=== PATIENT | male | born 1950 | race Caucasian/White ===

== ENCOUNTER → 2018-03-10 08:58 | Outpatient (CLI) | payer MEDICARE ==
[~2018-03-10] VITALS: Ht 177.8 cm; Wt 76.4 kg
--- NOTE | ~2018-03-10 | HEMODYNAMI ---
PATIENT:EMELY VALLE MEDICAL RECORD: [id number] : 50 LOCATION:DCASSIDY ADMISSION DATE: 03/10/18 Generatedon:03/10/201813:52 Patient name: EMELY VALLE Patient #: [id number] SSN: D OB: 1950 Date of study: 03/10/2018 Page: Of Hemodynamic Procedure Report Patient Data Patient Demographics Procedure consent was obtained First Name: EMELY Gender: Male Last Name: TORI : 1950 [facility] Initial: KERMIT Age: 67 year(s) Patient #: [id number] Race: Unknown Additional ID: [id number] Contact details Address: [address] [place] [address] State: [place] City: [facility] Zip code: [address] Past Medical History Allergies Allergen Reaction Date Comments Reported Other allergy 03/10/2018 iodine Admission Admission Data Admission Date: 03/10/2018 Admission Time: 8:58 Lab Results Lab Result Date: 03/10/2018 Lab Result Time: 0:00 Biochemistry Name Units Result Min Max BUN mg/dl 27 --(----)-* 7 18 Creatinine mg/dl 0.9 --(-*--)-- 0.6 1.3 CBC Name Units Result Min Max Hematocrit % 45.5 --(-*--)-- 42 54 Hemoglobin g/dl 15.7 --(--*-)-- 13.5 17.5 Procedure Procedure Types Cath Procedure Diagnostic Procedure LHC LH w/Coronaries FFR/IVUS Intra-Coronary IVUS Initial Sedation Charges Moderate Sedation up to 15 minutes PCI Procedure Coronary Stent Coronary Stent Initial Procedure Description Procedure Date Procedure Date: 03/10/2018 Procedure Start Time: 13:31 Procedure End Time: 13:49 Procedure Staff Name Function Miki Vazquez MD Performing Physician Lalo Elizabeth RT Monitor Jared Mckinney RN Nurse Apolonia Delgado RT Scrub Procedure Data Cath Procedure Fluoroscopy Diagnostic fluoroscopy Total fluoroscopy Time: 4 time: 4 min min Diagnostic fluoroscopy Total fluoroscopy dose: 890 dose: 890 mGy mGy Contrast Material Contrast Material Type Amount (ml) Isovue 370 87 Entry Location Entry Primary Successful Side Size Upsize Upsize Entry Closure Succes sful Closure Location (Fr) 1 (Fr) 2 (Fr) Remarks Device Remarks Femoral Right 5 Fr 6 Fr Exoseal artery Short Estimated blood loss: 10 ml Diagnostic catheters Device Type Used For End Catheter Placement MULTIPACK Pigtail 5 Fr Procedure catheter MULTIPACK JL 4.0 5Fr Procedure catheter MULTIPACK 3DRC 5Fr Procedure catheter Procedure Complications No complications Procedure Medications Medication Administration Route Dosage 0.9% NaCl I.V. 100 ml/hr Oxygen etCO2 Nasal cannula 2 l/min Heparin Flush Bag added to field 2 bags (1000units/500ml NS) Lidocaine 2% added to field 20 Benadryl I.V. 50 mg Versed I.V. 1 mg Fentanyl I.V. 50 mcg Fentanyl I.V. 50 mcg Versed I.V. 1 mg Fentanyl I.V. 50 mcg Heparin Bolus I.V. 4000 units Integrilin (Bolus I.V. 6.8 ml 2mg/ml) Integrilin (Bolus wasted 3.2 ml 2mg/ml) Hemodynamics Rest Heart Rate: 59 (bpm) Snapshots Pre Cath Intra NCS Post Cath Vital Signs Time Heart Resp SPO2 etCO2 NIBP Rhythm Pain Sedation Rate (ipm) (%) (mmHg) (mmHg) Status Level (bpm) 13:21:49 63 11 98 0 129/68(83) NSR 0 (11) 10(A) , No pain 13:26:29 58 17 98 14.3 103/67(83) NSR 0 (11) 10(A) , No pain 13:31:06 59 13 99 12 100/53(90) NSR 0 (11) 10(A) , No pain 13:35:42 57 14 99 34.6 92/57(70) NSR 0 (11) 9(A) , No pain 13:40:17 58 14 98 35.3 90/50(61) NSR 0 (11) 9(A) , No pain 13:44:51 59 16 97 36.1 83/44(59) NSR 0 (11) 10(A) , No pain 13:49:23 58 10 98 32.3 80/46(63) NSR 0 (11) 10(A) , No pain Medications Time Medication Route Dose Verified Delivered Reason Notes Effectiveness by by 13:26:12 0.9% NaCl I.V. 100 Jared Jared Per physician ml/hr Hank Mckinney RN RN 13:26:24 Oxygen etCO2 2 Jared Jared Per physician Nasal l/min Hank Mckinney cannula RN RN 13:26:36 Heparin Flush added 2 Jared Jared used for Bag to bags Hank Mckinney procedure (1000units/500ml field RN RN NS) 13:26:46 Lidocaine 2% added 20ml Jared Jared for local to vial Hank Mckinney anesthetic field RN RN 13:27:02 Benadryl I.V. 50 mg Jared Jared Per physician Hank Mckinney RN RN 13:30:01 Versed I.V. 1 mg Jared Jared for sedation Hank Mckinney RN RN 13:30:09 Fentanyl I.V. 50 Jared Jared for sedation mcg Hank Mckinney RN RN 13:31:36 Fentanyl I.V. 50 Jared Jared for sedation mcg Hank Mckinney RN RN 13:31:41 Versed I.V. 1 mg Jared Jared for sedation Hank Mckinney RN RN 13:33:25 Fentanyl I.V. 50 Jared Jared for sedation mcg Hank Mckinney RN RN 13:41:39 Heparin Bolus I.V. 4000 Jared Jared for units Hank Mckinney anticoagulation RN RN 13:41:54 Integrilin I.V. 6.8 Jared Jared for (Bolus 2mg/ml) ml Hank Mckinney antiplatelet RN RN therapy 13:42:04 Integrilin wasted 3.2 Jared Jared to sharp's (Bolus 2mg/ml) ml Hank Mckinney RN cancer registry manager Log Time Note 13:10:24 Time tracking: Regular hours (M-F 7:00 - 5:00) 13:10:27 Plan of Care:Hemodynamics will remain stable., Cardiac rhythm will remain stable., Comfort level will be maintained., Respiratory function will remain adequate., Patient/ family verbilizes understanding of procedure., Procedure tolerated without complication., Recovers from procedure without complications.. 13:10:30 Jared Mckinney RN sent for patient. Start room use. 13:16:16 Patient received from Pre/Post Procedure Room to CCL 1 Alert and oriented. Tansferred to table in Supine position. 13:16:18 Warm blankets applied, and kecia hugger turned on for patient comfort. 13:16:18 Correct patient and procedure confirmed by team. 13:16:19 Signed procedure consent form obtained from patient. 13:16:20 ECG and BP/O2 sat monitors applied to patient. 13:16:21 Full Disclosure recording started 13:21:01 Vital chart was started 13:21:07 Rhythm: sinus bradycardia 13:26:12 0.9% NaCl 100 ml/hr I.V. was administered by Jared Mckinney RN; Per physician; 13:26:24 Oxygen 2 l/min etCO2 Nasal cannula was administered by Jared Mckinney RN; Per physician; 13:26:36 Heparin Flush Bag (1000units/500ml NS) 2 bags added to field was administered by Jared Mckinney RN; used for procedure; 13:26:46 Lidocaine 2% 20ml vial added to field was administered by Jared Mckinney RN; for local anesthetic; 13:27:02 Benadryl 50 mg I.V. was administered by Jared Mckinney RN; Per physician; 13:27:09 H&P Date Dictated: 02/16/2018 Within 30 days and on chart., H&P Addendum completed by physician on day of procedure. (MUST COMPLETE FOR ALL OUTPATIENTS). 13:27:10 Pre-procedure instructions explained to patient. 13:27:10 Pre-op teaching completed and patient verbalized understanding. 13:27:12 Family in waiting room. 13:27:13 Patient NPO since Midnight. 13:27:20 Patient allergic to Other allergyiodine 13:27:22 Is the patient allergic to Iodine/contrast media? Yes. 13:27:24 Was the patient premedicated? Yes 13:27:26 Is patient on blood thinner?No 13:27:28 Patient diabetic? No. 13:27:32 Previous problem with sedation/anesthesia? No ? 13:27:33 Snore? No 13:27:33 Sleep apnea? No 13:27:34 Deviated septum? No 13:27:35 Opens mouth fully? Yes 13:27:36 Sticks out tongue? Yes 13:27:38 Airway obstruction? Yes copd 13:27:40 Dentures? No ? 13:27:43 Pre procedure: right dorsailis pedis pulse 2+ Normal; easily identifiable; not easily obliterated 13::45 Patient pain scale 0/10 ?. 13:27:55 IV patent on arrival in right antecubital with 0.9% NaCl at [facility]. 13::58 Lab Result : BUN 27 mg/dl :: Lab Result : Creatinine 0.9 mg/dl :: Lab Result : Hemoglobin 15.7 g/dl :: Lab Result : Hematocrit 45.5 % 13:29:02 Lab results completed and on chart. 13:29:04 Right groin area was prepped with chlora-prep and draped in sterile fashion 13:29:05 Alarms reviewed by R. N. 13:29:05 Sharps counted by scrub and verified by R.N. 13:29:09 Use device set Femoral Dx 13:29:10 ACIST Syringe (60767) opened to sterile field. 13:29:10 Bag Decanter (2002S) opened to sterile field. 13:29:11 Medline Cath Pack ([id number]) opened to sterile field. 13:29:12 ACIST Hand Control (98011) opened to sterile field. 13:29:12 ACIST Manifold (25334) opened to sterile field. 13:29:13 Tegaderm 4 x 4 (1626W) opened to sterile field. 13:29:15 SHEATH Prelude 5Fr 0.035 (ZGD-7J-30-035) opened to sterile field. 13:29:17 DIAGNOSTIC WIRE .035 260cm J wire (660150) opened to sterile field. 13:29:18 DIAGNOSTIC Multipack 5Fr catheter set ([id number]) opened to sterile field. 13:29:22 Physician arrived 13::23 --------ALL STOP TIME OUT------ 13:29:23 Final Timeout: patient, procedure, and site verified with staff and physician. All members of the team are in agreement. 13:29:24 Left groin site verified by team. 13:29:31 Physical assessment completed. ASA score P 2 - A patient with mild systemic disease as per Miki Vazquez MD. 13:29:34 Sedation plan: IV Moderate Sedation Medication:Versed, Fentanyl 13:30:01 Versed 1 mg I.V. was administered by Jared Mckinney RN; for sedation; 13:30:09 Fentanyl 50 mcg I.V. was administered by Jared Mckinney RN; for sedation; 13:31:27 Procedure started. 13:31:29 Local anesthetic to right femoral artery with Lidocaine 2% by Miki Vazquez MD.INITIAL ACCESS ONLY 13:31:36 Fentanyl 50 mcg I.V. was administered by Jared Mckinney RN; for sedation; 13:31:41 Versed 1 mg I.V. was administered by Jared Mckinney RN; for sedation; 13:31:47 A 5 Fr sheath was inserted into the Right Femoral artery 13:31:50 Baseline sample Acquired. 13:31:53 Zero performed for pressure channel P1 13:32:41 A MULTIPACK Pigtail 5 Fr catheter was advanced over the wire and used for Procedure. 13:33:15 LV gram done using OSORIO 13:33:17 Injector settings: Ml/sec: 10, Volume: 20, 13:33:25 Fentanyl 50 mcg I.V. was administered by Jared Mckinney RN; for sedation; 13:33:38 EF : 55 % 13:33:48 Catheter exchanged over wire. 13:33:53 A MULTIPACK JL 4.0 5Fr catheter was advanced over the wire and used for Procedure. 13:34:35 LCA angiography performed. 13:35:13 Catheter exchanged over wire. 13:35:18 A MULTIPACK 3DRC 5Fr catheter was advanced over the wire and used for Procedure. 13:36:22 RCA angiography performed. 13:36:59 Catheter removed. 13:37:42 CHOICE PT Extra Support 182cm wire ([id number]) opened to sterile field. 13:37:43 INFLATOR Merit BasixCompak (GP4672) opened to sterile field. 13:37:43 SHEATH Prelude 6Fr 0.035 (ULY-0M-04-035) opened to sterile field. 13:37:44 GUIDE 6FR AR 2.0 catheter (QT2FT00) opened to sterile field. 13:37:53 Sheath upsized to a 6 Fr Short. 13:39:09 6 Fr ar 2 guide catheter was inserted over the wire 13:40:14 Delmita [place] Eagleye IVUS Catheter (85372U) opened to sterile field. 13:40:21 choice pt es wire advanced. 13:40:22 Wire advanced across lesion. 13:40:24 IVUS catheter advanced over wire. 13:40:29 IVUS pass to RCA lesion performed. 13:41:39 Heparin Bolus 4000 units I.V. was administered by Jared Mckinney RN; for anticoagulation; 13:41:54 Integrilin (Bolus 2mg/ml) 6.8 ml I.V. was administered by Jared Mckinney RN; for antiplatelet therapy; 13:42:04 Integrilin (Bolus 2mg/ml) 3.2 ml wasted was administered by Jared Mckinney RN; to sharp's; 13:43:15 IVUS catheter removed over wire. 13:44:53 Place stent Inflation Number: 1 A INTEGRITY RX 2.5 x 14 stent ([id number]) was prepped and advanced across the Dist RCA. The stent was deployed at 11 SAMARIA for 0:11 (min:sec). 13:45:15 Stent catheter was removed intact over wire. 13:45:17 Wire removed. 13:45:17 Guide catheter removed. 13:45:31 EXOSEAL 6Fr (EX600) opened to sterile field. 13:45:44 Sheath removed intact; hemostasis achieved with Exoseal to the Right Femoral artery. 13:45:46 Procedure ended.(Physican Out) 13:47:42 Fluoroscopy time 04.00 minutes. 13:47:47 Flurop Dose total: 890 13:47:47 Fluoroscopy dose: 890 mGy 13:47:51 Contrast amount:Isovue 370 87ml. 13:47:52 Sharps counted by scrub and verified by R.N. 13:47:53 Insertion/operative site no bleeding no hematoma. 13:47:56 Post-op/insertion site Right Femoral artery dressed using a 4 x 4 and Tegaderm. 13:48:09 Post right femoral artery:stable, soft, clean and dry 13:48:11 Post Procedure Pulses reassessed and unchanged 13:48:16 Post-procedure physical assessment completed. ASA score P 2 - A patient with mild systemic disease as per Miki Vazquez MD. 13:48:18 Post procedure rhythm: unchanged. 13:48:23 Estimated blood loss: 10 ml 13:48:24 Post procedure instruction explained to patient.Patient verbalizes understanding. 13:48:25 Patient needs reinforcement of post procedure teaching. 13:48:35 Procedure type changed to Cath procedure, Diagnostic procedure, LHC, LHC w/Coronaries, FFR/IVUS, Intra-Coronary IVUS Initial, Sedation Charges, Moderate Sedation up to 15 minutes, PCI procedure, Coronary Stent, Coronary Stent Initial 13:49:17 Procedure and supply charges have been captured, reviewed, submitted and are correct. 13:49:19 Procedure Complication : No complications 13:49:22 Vital chart was stopped 13:49:22 See physician's report for complete and final results. 13:49:27 Report given to Pre/Post Procedure Room. 13:49:30 Patient transfered to Pre/Post Procedure Room with Stretcher. 13:49:32 Procedure ended. 13:49:32 Full Disclosure recording stopped 13:49:37 End room use (Document Last) Intervention Summary Intervention Notes Time ActionType Lesion and Equipment Action# Pressure Duration Attributes Used 13:44:53 Place stent Dist RCA INTEGRITY RX 1 11 00:11 2.5 x 14 stent ([id number]) Device Usage Item Name Manufacture Quantity Catalog Number Hospital Part Current Minimal Lot# / Charge Number Stock Stock Serial# Code ACIST Syringe Acist 1 55522 599839 683411 142337 20 (44097) Medical Systems Inc Bag Decanter Microtek 1 2001S 150717 18219 451446 5 (2001S) Medical Inc. Medline Cath Cardinal 1 [id number] 724889 71256 794543 5 Pack Health ([id number]) ACIST Hand Acist 1 23352 065497 013417 709656 5 Control (33732) Medical Systems Inc ACIST Manifold Acist 1 36932 311930 966511 650350 5 (76453) Medical Systems Inc Tegaderm 4 x 4 3M 1 1626W 131091 905076 615916 5 (1626W) SHEATH Prelude Merit 1 VVT-8O-20-035 966367 472140 211911 5 5Fr 0.035 Medical (CFM-0J-88-035) DIAGNOSTIC WIRE St Zack 1 050056 644705 351279 660536 30 .035 260cm J wire (498953) DIAGNOSTIC Cardinal 1 TF9314 935407 07725 514033 30 Multipack 5Fr Health catheter set (OG2158) MULTIPACK Cardinal 1 192607 5 Pigtail 5 Fr Health catheter MULTIPACK JL Cardinal 1 596293 5 4.0 5Fr Health catheter MULTIPACK 3DRC Cardinal 1 156589 5 5Fr catheter Health CHOICE PT Extra [place] 1 [id number] 491379 758690 027156 5 Support 182cm Scientific wire ([id number]) INFLATOR Merit Merit 1 VK5753 087470 597858 186308 15 BasixM2M [facility] (PQ4365) SHEATH Prelude Merit 1 MAY-2N-97-35 454659 5674324 958015 5 6Fr 0.035 Medical (BDI-8M-91-035) GUIDE 6FR AR Medtronic 1 NJ0PS11 799023 46453 423658 1 2.0 catheter (SF4UX93) Delmita Delmita 1 02043D 513676 893669 610398 8 [place] Eagleye IVUS Catheter (71627M) INTEGRITY RX Medtronic 1 [id number] 221693 476906 331548 5 [id number] 2.5 x 14 stent ([id number]) EXOSEAL 6Fr Cardinal 1 EX600 397833 770575 288671 10 (EX600) Health Signature Audit [place] Stage Time Signature Unsigned Intra-Procedure 03/10/2018 Lalo Elizabeth 1:52:28 PM RT(R) Signatures Monitor : Lalo Elizabeth RT Signature : Date : Time : [address] [place] [address]
--- NOTE | ~2018-03-10 | OP ---
PATIENT NAME: EMELY VALLE MEDICAL RECORD: [id number] :50 LOCATION:D.CAT ADMISSION DATE: SURGEON: THEO ESPINOSA MD DATE OF OPERATION: 03/10/2018 PROCEDURES: 1. PTCA stent RCA. 2. Intravascular ultrasound. 3. Left heart catheterization. 4. Selective coronary angiography. 5. Left ventriculogram. INDICATION: Angina and coronary artery disease. PROCEDURE IN DETAIL: After informed consent was obtained and after a detailed description of the risks, benefits as well as alternative therapies, the patient elected to proceed with angiogram and angioplasty. The right femoral area was prepped and draped in normal sterile fashion. Right femoral artery was cannulated via modified Seldinger technique with placement of 6-Comoran sheath. All catheters exchanged through this sheath. FINDINGS: Left ventriculogram was performed in standard 30-degree OSORIO view, reveals good cardiac wall motion throughout all segments. Overall ejection fraction estimated 60%. SELECTIVE CORONARY ANGIOGRAPHY: 1. Left main is with no significant angiographic disease. 2. Left anterior descending has previously placed stent proximally. This is widely patent with no significant restenosis. No disease elsewise throughout the LAD or its branches. 3. The left circumflex has moderate irregularities, but no flow-limiting stenosis. 4. The right coronary artery has a 70+ percent stenosis confirmed by intravascular ultrasound in the mid distal vessel. DEHYDROGENATION OPERATOR STENT OF THE RCA: The stent used was a 2.5 x 14 mm Integrity. Result was 0% residual stenosis. OVERALL IMPRESSION: Successful percutaneous transluminal coronary angioplasty stent of the right coronary artery going from 70+ percent initial stenosis to 0% residual. TRANSINT:[id number] Voice Confirmation ID: [id number] DOCUMENT ID: [id number] THEO ESPINOSA MD at 1816 CC: [id number] DICTATION DATE: 03/10/18 1354 SHIP RIGGER: 03/10/18 1420 [facility] [address] [id number]
[~2018-03-10 08:58] MED LIST: ATIVAN1 MG PO; BAYER CHEWABLE81 MG PO; BUSPAR10 MG PO; DYAZIDE 37.5/251 CAP PO; MEGACE 20 MG TA20 MG PO; NORCO 7.5/325 T1 TA1 PO; NORVASC5 MG PO; PLAVIX75 MG PO; PREDNISONE10 MG PO; PROVENTIL HFA6.7 GM INH; ROXICODONE30 MG PO; SOMA350 MG PO; SYMBICORT 80-10.2 GM INH; TENORMIN25 MG PO; VENTOLIN HFA18 GM INH; ZANAFLEX4 MG PO; ZOCOR10 MG PO
[2018-03-10 09:53] VITALS: BP 128/78; Ht 177.8 cm; Wt 76.4 kg
[2018-03-10 10:26] LABS: BASOPHILS 0.1 % (0-2); EOSINOPHILS 0.2 % (0-7); HEMATOCRIT 45.5 % (42.0-54.0); HEMOGLOBIN 15.7 g/dL (13.5-17.5); IMMATURE GRANULOCYTES 0.2 % (0-5); LYMPHOCYTES 15.6 % (15-50); MCH 31.7 pg (26.0-34.0); MCHC 34.5 g/dL (31.0-37.0); MCV 91.7 fL (80.0-100.0); MEAN PLATELET VOLUME 9.5 fL (7.4-10.4); MONOCYTES 6.2 % (2-11); NEUTROPHILS 77.7 % (40-80); PLATELET COUNT 212 10x3/uL (130-400); RBC 4.96 10x6/uL (4.20-6.10); RDW 13.5 % (11.5-14.5); WBC 10.2 10x3/uL (4.8-10.8)
[2018-03-10 10:31] LABS: CALC OSMOLALITY 283 mosm/kg (275-300); CALCIUM 8.7 mg/dL (8.5-10.1); CARBON DIOXIDE 29.9 mmol/L (21.0-32.0); CHLORIDE - SERUM 102 mmol/L (98-107); CREATININE - SERUM 0.9 mg/dL (0.6-1.3); GLUCOSE 116 mg/dL (74-106); POTASSIUM - SERUM 4.7 mmol/L (3.5-5.1); SODIUM 139 mmol/L (136-145); UREA NITROGEN 27 mg/dL (7-18); eGFR NON AFRICAN AMERICAN 89 mL/min (90-120)
== END | disposition home or self-care (01) ==
LOC: D.CATH 08:58
PROVIDERS: Internal Medicine Interventional Cardiology
DX: I25.119 Atherosclerotic heart disease of native coronary artery with unspecified angina pectoris (principal); Z95.5 Presence of coronary angioplasty implant and graft; Z01.812 Encounter for preprocedural laboratory examination

== ENCOUNTER 2019-01-06 19:56 | Observation (INO) | payer MEDICARE ==
[~2019-01-06] VITALS: Ht 177.8 cm; Wt 74.1 kg
--- NOTE | ~2019-01-06 | DS ---
PATIENT:EMELY VALLE :50 MEDICAL RECORD: [id number] DISCHARGE SUMMARY ADMISSION DATE: 01/06/19 DISCHARGE DATE: 01/07/19 DIAGNOSES: 1. Unstable angina. 2. Coronary artery disease. 3. IODINE ALLERGY. 4. COPD from smoking. 5. Hypertension. HOSPITAL COURSE: Mr. Valle presents with unstable anginal symptomatology, but has anaphylactic reaction to iodine. He was given Plavix and prednisone. He will return in 2 days for cardiac catheterization. TRANSINT:[id number] Voice Confirmation ID: [id number] DOCUMENT ID: [id number] THEO ESPINOSA MD CC: [id number] DICTATION DATE: 01/07/19942 PATIENT FINANCIAL COUNSELOR: 01/07/191953 DIS IN 01/07/19 [address] [address] [place] [address]
--- NOTE | ~2019-01-06 | HP ---
PATIENT: EMELY VALLE MEDICAL RECORD: [id number] ACCOUNT: [id number] LOCATION:D. D.2115 : 50 ADMISSION DATE: 01/06/19 PCP: FELIPE KEARNEY HISTORY AND PHYSICAL EXAMINATION DIAGNOSES: 1. Unstable angina. 2. Coronary artery disease. 3. Previous percutaneous transluminal coronary angioplasty stent. 4. IODINE ALLERGY. 5. Chronic obstructive pulmonary disease. 6. Smoking history. 7. Hypertension. HISTORY OF PRESENT ILLNESS: Mr. Valle presents with multiple days of increasing anginal symptomatology with increasing angina with exertion; however, this has now changed to angina at rest. It has worsened dramatically over the past week. It is just like that of his previous angina prior to having stents in the past. The last cardiac stents he had were 2016. He is on atenolol, given nitrates and still having chest pain today. His heart rate is in the 60s, systolic blood pressure is in the 100-110 range hence he is on maximal medical therapy. At this time, he continues to have angina. PHYSICAL EXAMINATION: GENERAL APPEARANCE: Well-nourished, well-developed, appears stated age. Level of distress, comfortable. PSYCHIATRIC: Mental status, alert, normal affect. Orientation, oriented to time, place and person. EYES: Lids and conjunctiva, noninjected. No discharge, no pallor. ENT: Lips, teeth, gums, normal dentition. Oropharynx, no cyanosis, no pallor. NECK: Carotid arteries, bilateral normal upstroke, no bruits, no thrills. JUGULAR VEINS: No jugular venous pressure or distention. CERVICAL LYMPH NODES: Nontender, nonenlarged. THYROID: Not enlarged. Nontender. No nodules. LUNGS: Respiratory effort, unlabored. CHEST: Normal curvature. No thoracic deformity. No chest wall tenderness. Percussion, resonant. Auscultation, clear. No wheezes, no rales, no rhonchi. CARDIOVASCULAR: Precordial exam, nondisplaced. No heaves or pericardial thrills. Rate and rhythm, regular. Heart sounds, normal S1, normal S2. No S3, no gallop, no rub. Systolic murmur, not heard. Diastolic murmur, not heard. EXTREMITIES: No cyanosis, no edema. Peripheral pulses, full and equal in all extremities, except as noted. No bruits appreciated. ABDOMEN: Soft, nondistended. Normal aorta. No bruit. Nontender. No masses. Liver, nontender, no hepatomegaly. Spleen, nontender, no splenomegaly. MUSCULOSKELETAL: No joint tenderness. No joint swelling. No erythema. NEUROLOGICAL: Normal gait, normal strength, normal tone. SKIN: Warm and dry. OVERALL IMPRESSION: Continued angina despite maximal medical therapy. Most likely he has hemodynamically significant coronary artery disease that is recurrent. He, however, has anaphylaxis to iodine. We will premedicate today. Plan for cardiac catheterization in the a.m. TRANSINT:[id number] Voice Confirmation ID: [id number] DOCUMENT ID: [id number] HISTORY AND PHYSICAL [id number] EMELY VALLE JEFFREY MD CC: [id number] DICTATION DATE: 01/07/19929 LITHOGRAPHIC ARTIST: 01/07/19942 ADM IN [facility] [address] [place] [address]
[2019-01-06 20:14] LABS: BASOPHILS 0.5 % (0-2); EOSINOPHILS 3.4 % (0-7); HEMATOCRIT 41.7 % (42.0-54.0); HEMOGLOBIN 14.2 g/dL (13.5-17.5); IMMATURE GRANULOCYTES 0.3 % (0-5); LYMPHOCYTES 38.5 % (15-50); MCH 31.8 pg (26.0-34.0); MCHC 34.1 g/dL (31.0-37.0); MCV 93.3 fL (80.0-100.0); MEAN PLATELET VOLUME 9.1 fL (7.4-10.4); MONOCYTES 12.5 % (2-11); NEUTROPHILS 44.8 % (40-80); PLATELET COUNT 201 10x3/uL (130-400); RBC 4.47 10x6/uL (4.20-6.10); WBC 7.5 10x3/uL (4.8-10.8)
[2019-01-06 20:21] LABS: INR 0.96 (0.85-1.17); PROTIME 12.3 SECONDS (11.6-15.0)
[2019-01-06 20:28] LABS: ALBUMIN 3.5 g/dL (3.4-5.0); ALKALINE PHOSPHATASE 79 U/L (46-116); ALT (SGPT) 45 U/L (10-68); BILIRUBIN - TOTAL 0.17 mg/dL (0.2-1.3); CALC OSMOLALITY 286 mosm/kg (275-300); CALCIUM 9.1 mg/dL (8.5-10.1); CARBON DIOXIDE 33.4 mmol/L (21.0-32.0); CHLORIDE - SERUM 106 mmol/L (98-107); CREATININE - SERUM 0.9 mg/dL (0.6-1.3); GLUCOSE 109 mg/dL (74-106); POTASSIUM - SERUM 4.8 mmol/L (3.5-5.1); PROTEIN - SERUM 6.7 g/dL (6.4-8.2); SODIUM 142 mmol/L (136-145); UREA NITROGEN 22 mg/dL (7-18); eGFR NON AFRICAN AMERICAN 89 mL/min (90-120)
[2019-01-06 20:40] LABS: CKMB 1.2 U/L (0.0-3.6); CREATINE KINASE 104 UL (21-232); MAGNESIUM - SERUM 2.3 mg/dL (1.8-2.4); TROPONIN-I < 0.017 ng/mL (0.000-0.060)
[2019-01-06 21:10] VITALS: BP 129/80
[2019-01-06 21:15] VITALS: BP 115/67
[2019-01-06 22:00] VITALS: BP 103/63
[2019-01-06 23:13] VITALS: BP 107/77; Ht 177.8 cm; Wt 74.1 kg
[2019-01-06] MEDS ORDERED: ALBUTEROL SULF8.5 GM INH (23:25)
[2019-01-07] VITALS: BP 110/70
[2019-01-07 04:00] VITALS: BP 123/78
[2019-01-07 07:57] VITALS: BP 147/90
[2019-01-07] MEDS ORDERED: PREDNISONE20 MG PO (10:14)
[2019-01-07] MEDS ORDERED: PLAVIX75 MG PO (10:15)
--- NOTE | 2019-01-07 14:59 | MORECARE ---
CASE MANAGEMENT DISCHARGE SUMMARY PATIENT: EMELY VALLE UNIT: [id number] ADM DATE: 01/06/19 AGE: 68 : 50 SEX: M ROOM/BED: D.2115 AUTHOR: DAVID JAMISON PHYSICIAN: REFERRING PHYSICIAN: THEO ESPINOSA MD DATE OF SERVICE: 01/07/19 Discharge Plan Patient Name: EMELY VALLE [facility] [facility] 1950 Planned Disposition: Anticipated Discharge Date: Discharge Date: 01/07/2019 Expected LOS: Initial Reviewer: [email or web address] Initial Review Date: 01/06/2019 Generated: 01/07/19 3:59 pm Patient Name: EMELY VALLE Page [phone] at 8344 All edits/amendments must be made on the electronic document DICTATION DATE: 01/07/191458 GENERAL TELLER: ETHAN 01/07/19 1459 RPT#: [id number] DC DATE:01/07/19 STATUS: DIS IN [facility] [address] [place] [address] END OF REPORT
== END 2019-01-07 11:11 | disposition home or self-care (01) ==
LOC: D.ER 19:56 → D.M2 21:43 → OBSVTIME 21:43 → D.M2 01-07 11:11
PROVIDERS: Emergency Medicine; ADMIT Internal Medicine Interventional Cardiology; ATTEND Internal Medicine Interventional Cardiology
DX: I25.110 Atherosclerotic heart disease of native coronary artery with unstable angina pectoris (principal); Z88.8 Allergy status to other drugs, medicaments and biological substances; J44.9 Chronic obstructive pulmonary disease, unspecified; Z87.891 Personal history of nicotine dependence; I10 Essential (primary) hypertension

== ENCOUNTER 2019-01-10 08:56 | Outpatient (CLI) | payer MEDICARE | END 2019-01-10 13:46 | disposition home or self-care (01) | LOC: D.CATH 08:56 | DX: I25.119 Atherosclerotic heart disease of native coronary artery with unspecified angina pectoris (principal); Z95.5 Presence of coronary angioplasty implant and graft; J44.9 Chronic obstructive pulmonary disease, unspecified ==

== ENCOUNTER 2019-06-01 12:22 | Observation (INO) | payer MEDICARE ==
[2019-06-01] VITALS (7 sets, daily range): BP systolic 104–150; BP diastolic 70–92; BMI 24.0
[~2019-06-01] VITALS: Ht 177.8 cm; Wt 75.9 kg
[~2019-06-01 12:22] MED LIST changes: +ALBUTEROL SULF8.5 GM INH; +PREDNISONE20 MG PO
[2019-06-01 12:40] LABS: BASOPHILS 0.2 % (0-2); EOSINOPHILS 1.8 % (0-7); HEMATOCRIT 43.8 % (42.0-54.0); IMMATURE GRANULOCYTES 0.2 % (0-5); LYMPHOCYTES 15.7 % (15-50); MCH 32.1 pg (26.0-34.0); MCHC 34.2 g/dL (31.0-37.0); MCV 93.6 fL (80.0-100.0); MEAN PLATELET VOLUME 9.4 fL (7.4-10.4); MONOCYTES 9.3 % (2-11); NEUTROPHILS 72.8 % (40-80); PLATELET COUNT 211 10x3/uL (130-400); RBC 4.68 10x6/uL (4.20-6.10); RDW 13.5 % (11.5-14.5); WBC 11.3 10x3/uL (4.8-10.8)
[2019-06-01 12:47] LABS: CALC OSMOLALITY 274 mosm/kg (275-300); CALCIUM 8.9 mg/dL (8.5-10.1); CARBON DIOXIDE 34.2 mmol/L (21.0-32.0); CHLORIDE - SERUM 101 mmol/L (98-107); CREATININE - SERUM 1.4 mg/dL (0.6-1.3); SODIUM 137 mmol/L (136-145); UREA NITROGEN 17 mg/dL (7-18); eGFR NON AFRICAN AMERICAN 53 mL/min (90-120)
[2019-06-01 12:48] LABS: APTT 30.4 SECONDS (22.8-39.4); INR 0.93 (0.85-1.17)
[2019-06-01 12:49] LABS: GLUCOSE 87 mg/dL (74-106)
[2019-06-01 13:02] LABS: ALBUMIN 3.5 g/dL (3.4-5.0); ALKALINE PHOSPHATASE 100 U/L (46-116); ALT (SGPT) 26 U/L (10-68); BILIRUBIN - TOTAL 0.27 mg/dL (0.2-1.3); CKMB 1.4 U/L (0.0-3.6); CREATINE KINASE 153 UL (21-232); MAGNESIUM - SERUM 1.8 mg/dL (1.8-2.4); TROPONIN-I < 0.017 ng/mL (0.000-0.060)
[2019-06-01 20:01] LABS: CKMB 1.4 U/L (0.0-3.6); CREATINE KINASE 137 UL (21-232)
[2019-06-01 20:33] LABS: TROPONIN-I < 0.017 ng/mL (0.000-0.060)
[2019-06-02] VITALS (7 sets, daily range): BP systolic 103–138; BP diastolic 52–78; Ht 177.8 cm; Wt 75.9 kg
[2019-06-02 01:21] LABS: BASOPHILS 0 % (0-2); EOSINOPHILS 0 % (0-7); HEMATOCRIT 42.2 % (42.0-54.0); HEMOGLOBIN 14.3 g/dL (13.5-17.5); IMMATURE GRANULOCYTES 0.1 % (0-5); LYMPHOCYTES 7.7 % (15-50); MCH 31.2 pg (26.0-34.0); MCHC 33.9 g/dL (31.0-37.0); MCV 91.9 fL (80.0-100.0); MEAN PLATELET VOLUME 9.4 fL (7.4-10.4); MONOCYTES 1.7 % (2-11); NEUTROPHILS 90.5 % (40-80); PLATELET COUNT 218 10x3/uL (130-400); RBC 4.59 10x6/uL (4.20-6.10); RDW 13.2 % (11.5-14.5); WBC 8.6 10x3/uL (4.8-10.8)
[2019-06-02 01:43] LABS: ALBUMIN 3.3 g/dL (3.4-5.0); ALKALINE PHOSPHATASE 85 U/L (46-116); ALT (SGPT) 23 U/L (10-68); BILIRUBIN - TOTAL 0.19 mg/dL (0.2-1.3); CALC OSMOLALITY 284 mosm/kg (275-300); CARBON DIOXIDE 32.9 mmol/L (21.0-32.0); CHLORIDE - SERUM 102 mmol/L (98-107); CREATINE KINASE 107 UL (21-232); CREATININE - SERUM 1.1 mg/dL (0.6-1.3); GLUCOSE 212 mg/dL (74-106); POTASSIUM - SERUM 3.6 mmol/L (3.5-5.1); PROTEIN - SERUM 6.9 g/dL (6.4-8.2); SODIUM 138 mmol/L (136-145); TROPONIN-I < 0.017 ng/mL (0.000-0.060); UREA NITROGEN 21 mg/dL (7-18); eGFR NON AFRICAN AMERICAN 71 mL/min (90-120)
[2019-06-03 04:00] VITALS: BP 103/49
[2019-06-03 05:22] LABS: HEMATOCRIT 41.8 % (42.0-54.0); HEMOGLOBIN 13.9 g/dL (13.5-17.5); MCH 31.2 pg (26.0-34.0); MCHC 33.3 g/dL (31.0-37.0); MCV 93.7 fL (80.0-100.0); MEAN PLATELET VOLUME 9.8 fL (7.4-10.4); PLATELET COUNT 250 10x3/uL (130-400); RBC 4.46 10x6/uL (4.20-6.10); RDW 13.8 % (11.5-14.5); WBC 21.6 10x3/uL (4.8-10.8)
[2019-06-03 05:31] LABS: ALKALINE PHOSPHATASE 90 U/L (46-116); ALT (SGPT) 20 U/L (10-68); CALC OSMOLALITY 288 mosm/kg (275-300); CALCIUM 8.6 mg/dL (8.5-10.1); CARBON DIOXIDE 30.5 mmol/L (21.0-32.0); CHLORIDE - SERUM 107 mmol/L (98-107); CREATININE - SERUM 0.9 mg/dL (0.6-1.3); POTASSIUM - SERUM 3.6 mmol/L (3.5-5.1); PROTEIN - SERUM 6.6 g/dL (6.4-8.2); SODIUM 142 mmol/L (136-145); UREA NITROGEN 25 mg/dL (7-18); eGFR NON AFRICAN AMERICAN 89 mL/min (90-120)
[2019-06-03 05:32] LABS: GLUCOSE 137 mg/dL (74-106)
[2019-06-03 05:51] LABS: EOSINOPHILS 1 % (0-7); LYMPHOCYTES 4 % (15-50); MONOCYTES 2 % (2-11); NEUTROPHILS 91 % (40-80); PLATELET ESTIMATE NORMAL
[2019-06-03 08:56] VITALS: BP 128/71
[2019-06-03] MEDS ORDERED: ELIQUIS5 MG PO (13:01)
[2019-06-03] MEDS ORDERED: PREDNISONE10 MG PO (14:13)
--- NOTE | 2019-06-04 08:19 | MORECARE ---
CASE MANAGEMENT DISCHARGE SUMMARY PATIENT: JOSE L VALLE UNIT: [id number] ADM DATE: 06/01/19 AGE: 68 : 50 SEX: M ROOM/BED: D.[facility] AUTHOR: DAVID JAMISON PHYSICIAN: REFERRING PHYSICIAN: ANGELIQUE SEAMAN MD DATE OF SERVICE: 06/04/19 Discharge Plan Patient Name: JOSE L VALLE Facility: [facility]:[place] : 1950 Planned Disposition: Home Anticipated Discharge Date: 06/03/19 Discharge Date: 06/03/2019 Expected LOS: 2 Initial Reviewer: [email or web address] Initial Review Date: 06/04/2019 Generated: 06/04/19 9:19 am Coverage Notice Reviewer: [email or web address] Tierney Vicente Notice Issued Date-Time: 06/03/2019 14:45 Notice Type: IM Discharge Notice Notice Delivered To: Patient Relationship to Patient: Self Elevator Dispatcher Name: Jose L Valle Delivery Method: HAND - Hand Delivered Mara Days: Prior Verbal Notification: Recipient Understood Notice: Recipient Signature: Med Rec Note Co-signed by Attending: Coverage Notice Comment: IMM delivered to and signed by patient. Patient Name: JOSE L VALLE Page [phone] at 0819 All edits/amendments must be made on the electronic document DICTATION DATE: 06/04/19818 DIETARY TECH: ETHAN 06/04/19818 RPT#: [id number] DC DATE:06/03/19 STATUS: DIS IN [facility] [address] [place] [address] END OF REPORT
--- NOTE | 2019-06-05 14:43 | CN ---
PATIENT NAME:EMELY VALLE MEDICAL RECORD: [id number] : 50 LOCATION:D.M2 D.2112 ADMIT DATE: 06/01/19 ACCOUNT: [id number] CONSULTING PHYSICIAN: ARNULFO HESTER MD REFERRING PHYSICIAN: GI SEAMAN MD DATE OF CONSULTATION: 06/02/2019 CONSULT REQUESTING PHYSICIAN: Gi Seaman MD REASON FOR CONSULTATION: Acute exacerbation of chronic obstructive pulmonary disease and high probability for V/Q scan with a negative D-dimer. HISTORY OF PRESENT ILLNESS: Mr. Valle is a 68-year-old gentleman who has a history of smoking, coronary artery disease, and COPD. The patient came into the ER with shortness of breath. He is also having chest pain on the left side in the back and in the front. The pain is now better, but he is sore. There are no fevers or chill, no night sweats. REVIEW OF SYSTEMS: As in the history of present illness. PAST MEDICAL HISTORY: 1. Coronary artery disease. 2. Hypertension. 3. Chronic obstructive pulmonary disease. 4. Allergies, mainly environmental. 5. Chronic backache. 6. Diverticulosis. 7. Anxiety. PAST SURGICAL HISTORY: 1. He has a colon resection. 2. Right total knee replacement. 2. Herniorrhaphy. 3. 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 ALLERGIES: HE IS ALLERGIC TO IODINE, HAD SEVERE ANAPHYLACTIC REACTION IN 2015. MEDICATIONS: On [employer] is reviewed. PERSONAL AND SOCIAL HISTORY: The patient still continues to smoke. He is a nondrinker. FAMILY HISTORY: Significant for coronary artery disease and hypertension. PHYSICAL EXAMINATION: GENERAL: Now, the patient is lying comfortable in bed. He is not in acute distress. VITAL SIGNS: The blood pressure is 120/72, pulse is 95, respiration is 20, temperature 97.8, SpO2 97% on room air. HEENT: Conjunctivae are pink. Sclerae are not icteric. NECK: Supple, no JVD. CHEST: There is no wheeze, no rales. HEART: Rate and rhythm regular, normal sound, no murmur. ABDOMEN: Soft, bowel sounds present. No hepatosplenomegaly. RECTAL: Deferred. CONSULT REPORT [id number] EMELY VALLE EXTREMITIES: No cyanosis, no clubbing, no pedal edema. CENTRAL NERVOUS SYSTEM: The patient is awake and alert. There are no obvious cranial nerve abnormalities. The gait was not tested. CHEST RADIOGRAPH: There is no acute infiltrate. There is hyperinflation. The V/Q scan is consistent with high probability of PE. OTHER LABORATORY DATA: The D-dimer is 0.37. CBC: WBC 8.6, hemoglobin 14.3, hematocrit 42.2, and the platelet count 218. Chemistry: Sodium is 138, potassium 3.6, BUN is 21, and creatinine 1.1. IMPRESSION: 1. Acute exacerbation of chronic obstructive pulmonary disease. 2. Abnormal V/Q scan with a negative D-dimer, doubt pulmonary embolism. 3. Chest pain, most likely musculoskeletal origin, possible pleurisy. 4. Tobacco dependence syndrome. 5. Hypertension. 6. Coronary artery disease. The patient's cardiac enzymes are normal. RECOMMENDATIONS: 1. Continue albuterol/ipratropium nebulizer. Start on Brovana and budesonide nebulizer. 2. Methylprednisolone IV. 3. I will repeat the D-dimer, ultrasound of the lower extremities and chest radiograph. Discussed with Dr. Gi Seaman in length with a negative D-dimer, it would be less likely thromboembolism. Discussed with the labs, the sensitivity and specificity of the test is 95%. Dr. Seaman, thank you for involving me in the care of Mr. Valle. TRANSINT:[id number] Voice Confirmation ID: [id number] DOCUMENT ID: [id number] ARNULFO HESTER MD at 1443 CC: [id number] DICTATION DATE: 06/02/19 1516 SUSTAINABLE DESIGN COORDINATOR: 06/02/192133 DIS IN 06/03/19 [facility] [address] [id number]
--- NOTE | 2019-06-12 11:40 | EC ---
PATIENT:EMELY VALLE DATE OF SERVICE: 06/01/19 SEX: M MEDICAL RECORD: [id number] DATE OF : 50 LOCATION:D.M2 D.211 AGE OF PATIENT: 68 ADMISSION DATE: 06/01/19 REFERRING PHYSICIAN: INTERPRETING PHYSICIAN: THEO VAZQUEZ MD ECHOCARDIOGRAM REPORT ECHO CHARGES 4 ECHO COMPLETE Date: 06/02/19 CLINICAL DIAGNOSIS: DYSPNEA ECHOCARDIOGRAPHIC MEASUREMENTS (adult normal given) AC root (d.<3.7cm) 3.1 cm LV Septum d (<1.2 cm> 1.4 cm Valve Excursion 1.8 cm LV Septum (systole) 1.6 cm Left Atria (s.<4.0cm> 3.0 cm LVPW d(<1.2cm) 1.3 cm RV (d.<2.3cm) 2.8 cm LVPW (sytole) 2.0 cm LV diastole(<5.6CM) 5.9 cm MV E-F(>70mm/sec) cm LV systole 2.8 cm LVOT Diameter 1.9 cm MV exc.(>10mm) cm Est.ejection fraction (50-75%) % DOPPLER: LVIT cm/sec A 124 cm/sec E 100 cm/sec LA cm/sec RVSP 32.1 mmHg LVOT 213 cm/sec AOP1/2T m/s Asc. Ao 253 cm/sec RVOT 83.0 cm/sec RA cm/sec PA 85.0 cm/sec AV Gradient Peak 26.0 mmHg AV Mean 13.0 mmHg AV Area 2.2 cm MV Gradient Peak 7.5 mmHg MV Mean 3.6 mmHg MV Area cm COMMENTS: Press Assistant: Isaias CAVANAUGHOE [employer] Director: 1 Dr. Vazquez TAPE# PACS Pericardial Effusion N DATE OF SERVICE: FINDINGS: 1. Left ventricular chamber size is mildly dilated. Left ventricular systolic function is preserved. Overall ejection fraction 65%. 2. Left atrium is within normal limits at 3.0 cm. Right atrium and right ventricular chamber sizes are mildly dilated. 3. Valvular structures have normal structure and motion. 4. Doppler interrogation reveals mild tricuspid regurgitation. No other valvular insufficiency or stenosis. Pulmonary systolic pressure is normal, ECHOCARDIOGRAM REPORT [id number] EMELY VALLE estimated 32 mmHg. 5. No evidence of pericardial effusion or left ventricular thrombus. TRANSINT:[id number] Voice Confirmation ID: [id number] DOCUMENT ID: [id number] THEO VAZQUEZ MD at 1140 CC: [id number] DICTATION DATE: 06/03/19 1010 CARE MANAGEMENT COORDINATOR: 06/03/19 1119 DIS IN 06/03/19 [facility] [address] [id number]
--- NOTE | 2019-06-12 11:40 | CN ---
PATIENT NAME:EMELY VALLE MEDICAL RECORD: [id number] : 50 LOCATION:D.M2 D.2112 ADMIT DATE: 06/01/19 ACCOUNT: [id number] CONSULTING PHYSICIAN: THEO ESPINOSA MD REFERRING PHYSICIAN: ANGELIQUE SEAMAN MD DATE OF CONSULTATION: 06/01/2019 Cardiology Consultation ADMITTING DIAGNOSES: 1. Chest pain. 2. Coronary artery disease. 3. Prior percutaneous transluminal coronary angioplasty and stent. 4. Chronic obstructive pulmonary disease. 5. Smoking history. HISTORY OF PRESENT ILLNESS: Mr. Valle presents with shortness of breath and chest pain. The chest pain is different than the pain that he has had from an anginal standpoint, he is having a sharp pain, worse with cough, worse with deep inspiration, centered around the left shoulder area. This is not at all like his previous angina. He has been more short of breath with productive cough and sputum in the past few days. He has been afebrile. He does have a history of COPD and has a history of COPD exacerbations. PHYSICAL EXAMINATION: GENERAL APPEARANCE: Well nourished, well developed, appears stated age. Level of distress, comfortable. PSYCHIATRIC: Mental status, alert, normal affect. Orientation, oriented to time, place and person. EYES: Lids and conjunctiva, noninjected. No discharge, no pallor. ENT: Lips, teeth, gums, normal dentition. Oropharynx, no cyanosis, no pallor. NECK: Carotid arteries, bilateral normal upstroke, no bruits, no thrills. JUGULAR VEINS: No jugular venous pressure or distention. CERVICAL LYMPH NODES: Nontender, nonenlarged. THYROID: Not enlarged. Nontender. No nodules. LUNGS: Respiratory effort, unlabored. CHEST: Normal curvature. No thoracic deformity. No chest wall tenderness. Percussion, resonant. Auscultation, clear. No wheezes, no rales, no rhonchi. CARDIOVASCULAR: Precordial exam, nondisplaced. No heaves or pericardial thrills. Rate and rhythm, regular. Heart sounds, normal S1, normal S2. No S3, no gallop, no rub. Systolic murmur, not heard. Diastolic murmur, not heard. EXTREMITIES: No cyanosis, no edema. Peripheral pulses, full and equal in all extremities, except as noted. No bruits appreciated. ABDOMEN: Soft, nondistended. Normal aorta. No bruit. Nontender. No masses. Liver, nontender, no hepatomegaly. Spleen, nontender, no splenomegaly. MUSCULOSKELETAL: No joint tenderness. No joint swelling. No erythema. NEUROLOGICAL: Normal gait, normal strength, normal tone. SKIN: Warm and dry. OVERALL IMPRESSION: Atypical chest pain, most likely this is noncardiac. This is chronic obstructive pulmonary disease and chronic obstructive pulmonary disease exacerbation and bronchitis. The chest pain is clearly associated with deep inspiration and cough. At this time, no other workup or treatment from the standpoint of ischemic heart disease is needed. CONSULT REPORT [id number] EMELY VALLE TRANSINT:[id number] Voice Confirmation ID: [id number] DOCUMENT ID: [id number] THEO ESPINOSA MD at 1140 CC: [id number] DICTATION DATE: 06/01/19 1631 GEOPHYSICAL MANAGER: 06/02/19 0113 DIS IN 06/03/19 [facility] [address] [place] [address]
== END 2019-06-03 16:00 | disposition home or self-care (01) ==
LOC: D.ER 12:22 → D.M2 14:53 → OBSVTIME 14:53 → D.M2 06-03 16:00
PROVIDERS: Family Medicine; ADMIT Emergency Medicine; ATTEND Emergency Medicine
DX: I25.110 Atherosclerotic heart disease of native coronary artery with unstable angina pectoris (principal); J44.1 Chronic obstructive pulmonary disease with (acute) exacerbation; I26.99 Other pulmonary embolism without acute cor pulmonale; F17.213 Nicotine dependence, cigarettes, with withdrawal; I10 Essential (primary) hypertension; G89.29 Other chronic pain; M54.9 Dorsalgia, unspecified; F41.9 Anxiety disorder, unspecified; J40 Bronchitis, not specified as acute or chronic

== ENCOUNTER 2019-09-05 15:53 | Observation (INO) | payer MEDICARE ==
[~2019-09-05] VITALS: Ht 177.8 cm; Wt 81.8 kg
--- NOTE | ~2019-09-05 | HEMODYNAMI ---
PATIENT:EMELY VALLE MEDICAL RECORD: [id number] : 50 [id number] ADMISSION DATE: 09/05/19 Generatedon:09/06/201915:44 Patient name: EMELY VALLE Patient #: [id number] SSN: [id number] : 1950 Date of study: 09/06/2019 Page: Of Hemodynamic Procedure Report Patient Data Patient Demographics First Name: EMELY Gender: Male Last Name: TORI : 1950 [facility] Initial: KERMIT Age: 69 year(s) Patient #: [id number] Race: Unknown SSN: [id number] Additional ID: [id number] Contact details Address: [address] [place] [address] State: [place] City: [facility] Zip code: [address] Past Medical History Allergies Allergen Reaction Date Comments Reported Other allergy 03/10/2018 iodine Admission Admission Data Admission Date: 09/05/2019 Admission Time: 19:01 Arrival Date: 09/05/2019 Arrival Time: 19:01 Admit Source: Emergency Insurance Payor: Medicare department [facility] #: [id number] Room #: D.2116 Height (in.): 70.08 BSA: 2 (m2) Height (cm.): 178 BMI: 25.88 (kg/m2) Weight (lbs.): 180.78 Weight (kg.): 82 Lab Results Lab Result Date: 09/06/2019 Lab Result Time: 0:00 Biochemistry Name Units Result Min Max BUN mg/dl 24 --(----)-* 7 18 Creatinine mg/dl 0.9 --(-*--)-- 0.6 1.3 eGFR ml/min 88.46213 -*(----)-- 90 120 NONAFRICAN CBC Name Units Result Min Max Hemoglobin g/dl 14.9 --(-*--)-- 13.5 17.5 Procedure Procedure Types Cath Procedure Diagnostic Procedure [facility] w/Coronaries FFR/IVUS FFR Initial Sedation Charges Moderate Sedation up to 15 minutes PCI Procedure Coronary Stent Coronary Stent Initial x2 PTCA PTCA Initial Procedure Description Procedure Date Procedure Date: 09/06/2019 Procedure Start Time: 15:16 Procedure End Time: 15:39 Procedure Staff Name Function Miki Vazquez MD Performing Physician Megan Russell RN Cylinder Inspector And Tester Salena Soto RT Scrub Gi Byers RT Monitor Procedure Data Cath Procedure Fluoroscopy Diagnostic fluoroscopy Total fluoroscopy Time: 5.5 time: 5.5 min min Diagnostic fluoroscopy Total fluoroscopy dose: 834 dose: 834 mGy mGy Contrast Material Contrast Material Type Amount (ml) Isovue 300 136 Entry Location Entry Primary Successful Side Size Upsize Upsize Entry Closure Succes sful Closure Location (Fr) 1 (Fr) 2 (Fr) Remarks Device Remarks Femoral Right 5 Fr 6 Fr Exoseal artery Short Estimated blood loss: 5 ml Diagnostic catheters Device Type Used For End Catheter Placement MULTIPACK Pigtail 5 Fr LV Angiography catheter MULTIPACK JL 4.0 5Fr Left Coronary catheter Angiography MULTIPACK 3DRC 5Fr Right Coronary catheter Angiography Procedure Complications No complications Procedure Medications Medication Administration Route Dosage Oxygen etCO2 Nasal cannula 2 l/min Lidocaine 2% added to field 20 Heparin Flush Bag added to field 2 bags (1000units/500ml NS) 0.9% NaCl I.V. bolus 500 ml Versed I.V. 2 mg Fentanyl I.V. 50 mcg Heparin Bolus I.V. 4000 units Versed I.V. 2 mg Fentanyl I.V. 50 mcg Integrilin (Bolus I.V. 7.3 ml 2mg/ml) Fentanyl I.V. 100 mcg Plavix P.O. 600 mg Hemodynamics Rest BSA: 2 (m2) HGB: 14.9 (g/dl) O2 Consumption: Estimated: 246.89 (ml/min) O2 Consu mption indexed: Estimated:123.44 (ml/min/m) Heart Rate: 90 (bpm) Pressure Samples Time Site Value (mmHg) Purpose Heart Use Rate(bpm) 15:18 LV 46/-2,10 Snapshot 88 Snapshots Pre Cath Intra NCS Post Cath Vital Signs Time Heart Resp SPO2 etCO2 NIBP Rhythm Pain Status Sedation Rate (ipm) (%) (mmHg) (mmHg) Level (bpm) 15:02:09 102 11 94 0 101/59(75) NSR 0 (11) , No 10(A) pain 15:06:21 88 10 95 0 86/53(75) NSR 0 (11) , No 10(A) pain 15:10:31 90 12 93 29.1 96/54(66) NSR 0 (11) , No 10(A) pain 15:14:43 91 13 94 29.8 87/50(62) NSR 0 (11) , No 10(A) pain 15:18:53 96 15 94 29.8 88/48(65) NSR 0 (11) , No 10(A) pain 15:23:05 92 12 94 24.6 89/47(59) NSR 0 (11) , No 10(A) pain 15:28:08 99 13 93 36.5 84/49(66) NSR 0 (11) , No 10(A) pain 15:32:16 102 13 94 23.8 98/52(68) NSR 9 (11) , 10(A) Excruciating unbearable 15:36:23 101 14 92 32.1 97/64(77) NSR 9 (11) , 10(A) Excruciating unbearable 15:40:11 105 14 93 23.1 102/64(82) NSR 9 (11) , 10(A) Excruciating unbearable Medications Time Medication Route Dose Verified Delivered Reason Notes Effectiveness by by 15:01:20 Oxygen etCO2 2 Miki Guzman used for Nasal l/min George Russell RN procedure cannula 15:01:53 Lidocaine 2% added 20ml Miki Livingston for local to vial George Vazquez MD anesthetic field 15:01:59 Heparin Flush added 2 Miki Livingston used for Bag to bags George Vazquez MD procedure (1000units/500ml field NS) 15:02:34 0.9% NaCl I.V. 500 Miki Livingston used for bolus ml George Vazquez MD procedure 15:15:58 Versed I.V. 2 mg Miki Guzman for sedation George Russell RN 15:16:04 Fentanyl I.V. 50 Miki Floodie for sedation mcg George Russell RN 15:21:43 Heparin Bolus I.V. 4000 Miki Guzman for verif ied units George Russell RN anticoagulation with dr vazquez 15:23:49 Versed I.V. 2 mg Miki Guzman for sedation George Russell RN 15:23:52 Fentanyl I.V. 50 Miki Guzman for sedation mcg George Russell RN 15:25:06 Integrilin I.V. 7.3 Miki Guzman for waste d (Bolus 2mg/ml) ml George Russell RN antiplatelet 2.7 ml therapy of vial 15:34:38 Fentanyl I.V. 100 Miki Guzman for chest pain mcg George Russell RN 15:42:56 Plavix P.O. 600 Miki Guzman for mg George Russell RN antiplatelet therapy Procedure Log Time Note 14:50:24 Megan Russell RN sent for patient. Start room use. 15:00:56 Vital chart was started 15:01:20 Oxygen 2 l/min etCO2 Nasal cannula was administered by Megan Russell RN; used for procedure; Verbal order read back and verified. 15:01:53 Lidocaine 2% 20ml vial added to field was administered by Miki Vazquez MD; for local anesthetic; Verbal order read back and verified. 15:01:59 Heparin Flush Bag (1000units/500ml NS) 2 bags added to field was administered by Miki Vazquez MD; used for procedure; Verbal order read back and verified. 15:02:34 0.9% NaCl 500 ml I.V. bolus was administered by Miki Vazquez MD; used for procedure; Verbal order read back and verified. 15:04:25 Time tracking: Regular hours (M-F 7:00 - 5:00) 15:04:31 Plan of Care:Hemodynamics will remain stable., Cardiac rhythm will remain stable., Comfort level will be maintained., Respiratory function will remain adequate., Patient/ family verbilizes understanding of procedure., Procedure tolerated without complication., Recovers from procedure without complications.. 15:04:51 Patient received from Med II to CCL 1 Alert and oriented. Tansferred to table in Supine position. 15:04:52 Warm blankets applied, and kecia hugger turned on for patient comfort. 15:04:53 Correct patient and procedure confirmed by team. 15:04:53 ECG and BP/O2 sat monitors applied to patient. 15:04:54 Baseline sample Acquired. 15:04:58 Rhythm: sinus rhythm 15:05:00 Full Disclosure recording started 15:05:04 H&P Date Dictated: 09/06/2019 ER History on chart., New H&P dictated by physician.. 15:05:06 Pre-procedure instructions explained to patient. 15:05:06 Pre-op teaching completed and patient verbalized understanding. 15:05:08 Family in patients room. 15:05:10 Patient NPO since Midnight. 15:05:12 Is the patient allergic to Iodine/contrast media? Yes. 15:05:13 Was the patient premedicated? Yes 15:05:17 Is patient on blood thinner?No 15:05:20 Patient diabetic? No. 15:05:30 Previous problem with sedation/anesthesia? No ? 15:05:32 Snore? Yes 15:05:33 Sleep apnea? No 15:05:34 Deviated septum? No 15:05:34 Opens mouth fully? Yes 15:05:35 Sticks out tongue? Yes 15:06:08 Airway obstruction? Yes copd, athsma 15:06:11 Dentures? Yes out 15:06:15 Pre procedure: right dorsailis pedis pulse 2+ Normal; easily identifiable; not easily obliterated 15:06:17 Pre procedure: left dorsailis pedis pulse 2+ Normal; easily identifiable; not easily obliterated 15:06:19 Patient pain scale 0/10 ?. 15:06:26 IV patent on arrival in right forearm with 0.9% NaCl at O. 15:06:28 Lab results completed and on chart. 15:06:35 Stress Test: no; N/A ? 15:07:40 Lab Result : Creatinine 0.9 mg/dl 15:07:40 Lab Result : BUN 24 mg/dl 15:07:40 Lab Result : eGFR NONAFRICAN 88.49625 ml/min 15:07:40 Lab Result : Hemoglobin 14.9 g/dl 15:10:11 Risk of Mortality: 1.1 15:10:15 Risk of blood transfusion: 0.5 15:10:18 Risk of MESSI: 5.1 15:10:24 Right groin area was prepped with chlora-prep and draped in sterile fashion 15:10:25 Alarms reviewed by R. N. 15:10:25 Sharps counted by scrub and verified by R.N. 15:10:38 Physician paged 15:11:52 Admit Source: Emergency department 15:12:03 Arrival Date: 09/05/2019 7:01:00 PM 15:12:57 Insurance Payor : Medicare 15:13:42 Patient Height : 70.08 inches 15:13:46 Patient Weight : 180.78 lbs 15:14:19 Physician arrived 15:14:22 --------ALL STOP TIME OUT------ 15:14:23 Final Timeout: patient, procedure, and site verified with staff and physician. All members of the team are in agreement. 15:14:25 Right groin site verified by team. 15:14:29 Fire Safety Assessment: A--An alcohol-based skin anteseptic being used preoperatively., C--Open oxygen or nitrous oxide is being used., D--An ESU, laser, or fiber-optic light is being used. 15:14:39 Physical assessment completed. ASA score P 2 - A patient with mild systemic disease as per Miki Vazquez MD. 15:14:42 2) 60-89 Mildly reduced kidney function, and other findings (as for stage 1) point to kidney disease. 15:14:51 Sedation plan: IV Moderate Sedation Medication:Versed, Fentanyl 15:14:54 Use device set Femoral Dx 15:14:55 ACIST Syringe (48311) opened to sterile field. 15:14:56 Bag Decanter (2002S) opened to sterile field. 15:14:56 Medline Cath Pack ([id number]) opened to sterile field. 15:14:57 ACIST Hand Control (09818) opened to sterile field. 15:14:58 ACIST Manifold (43454) opened to sterile field. 15:14:58 DIAGNOSTIC Multipack 5Fr catheter set (UP5761) opened to sterile field. 15:14:58 Tegaderm 4 x 4 (1626W) opened to sterile field. 15:15:00 SHEATH 5FR [place] (OEE133) opened to sterile field. 15:15:00 EMERALD Guide Wire (786-280) opened to sterile field. 15:15:04 Procedure started. 15:15:58 Versed 2 mg I.V. was administered by Megan Russell RN; for sedation; Verbal order read back and verified. 15:16:04 Fentanyl 50 mcg I.V. was administered by Megan Russell RN; for sedation; Verbal order read back and verified. 15:16:19 Local anesthetic to right femoral artery with Lidocaine 2% by Miki Vazquez MD.INITIAL ACCESS ONLY 15:16:30 A 5 Fr sheath was inserted into the Right Femoral artery 15:17:13 Zero performed for pressure channel P1 15:17:19 A MULTIPACK Pigtail 5 Fr catheter was advanced over the wire and used for LV Angiography. 15:17:24 Zero performed for pressure channel P1 15:17:38 Zero performed for pressure channel P1 15:18:12 LV hemodynamics recorded. 15:18:14 LV gram done using OSORIO 15:18:16 Injector settings: Ml/sec: 5, Volume: 15, 15:18:21 EF : 60 % 15:18:24 Catheter removed. 15:18:28 A MULTIPACK JL 4.0 5Fr catheter was advanced over the wire and used for Left Coronary Angiography. 15:19:00 LCA angiography performed. 15:19:07 Injector settings: Ml/sec: 3, Volume: 6, 15:20:10 Catheter removed. 15:20:18 A MULTIPACK 3DRC 5Fr catheter was advanced over the wire and used for Right Coronary Angiography. 15:20:31 RCA angiography performed. 15:20:34 Injector settings: Ml/sec: 3, Volume: 6, 15:20:54 GUIDE 6FR XBLAD 4.0 catheter ([id number]) opened to sterile field. 15:20:54 Isabella Verrata Plus pressure wire (56216I) opened to sterile field. 15:20:55 INFLATOR Merit BasixCompak (FY9227) opened to sterile field. 15:20:56 SHEATH 6FR [place] (ITE778) opened to sterile field. 15:20:58 ACCDominant side:Right 15:21:09 Catheter removed. 15:21:10 Proceeding to intervention. 15:21:18 Sheath upsized to a 6 Fr Short. 15:21:43 Heparin Bolus 4000 units I.V. was administered by Megan Russell RN; for anticoagulation; verified with dr vazquez Verbal order read back and verified. 15:22:00 6 Fr xblad 4 guide catheter was inserted over the wire 15:22:14 FFR/IFR wire advanced. 15:22:20 Baseline FFR 1. 15:22:29 CHOICE PT Extra Support 182cm wire ([id number]) opened to sterile field. 15:23:49 Versed 2 mg I.V. was administered by Megan Russell RN; for sedation; Verbal order read back and verified. 15:23:52 Fentanyl 50 mcg I.V. was administered by Megan Russell RN; for sedation; Verbal order read back and verified. 15:24:21 Wire advanced across lesion. 15:24:47 mLAD lesion measured at 0.75 with IFR 15:25:06 Integrilin (Bolus 2mg/ml) 7.3 ml I.V. was administered by Megan Russell RN; for antiplatelet therapy; wasted 2.7 ml of vial Verbal order read back and verified. 15:25:30 ACC Pre-intervention DOMO Flow is 3. 15:25:38 Pre PCI Site: Unga pLAD has 75% stenosis. 15:27:28 Place stent Inflation Number: 1 A SHAHEEN RX 3.5 x 08 stent ([id number]) was prepped and advanced across the Prox LAD 75. The stent was deployed at 21 SAMARIA for 0:10 (min:sec) 0. 15:27:46 Stent catheter was removed intact over wire. 15:27:47 Wire removed. 15:27:55 choice pt wire advanced. 15:27:58 Wire advanced across lesion. 15:29:26 The SHAHEEN RX 3.5 x 08 stent ([id number]) was advanced then removed because of failure to cross lesion 15:30:37 Pre PCI Site: Unga pCirc has 90% stenosis. 15:30:40 Inflate balloon Inflation number: 1 A EUPHORA 3.0 x 15 Balloon ([id number]) was prepped and advanced across the Prox CX 90, then inflated to 19 SAMARIA for 0:10 (min:sec) 0. 15:30:49 Balloon removed over the wire. 15:31:46 Place stent Inflation Number: 2 A SHAHEEN RX 3.5 x 08 stent ([id number]) was prepped and advanced across the Prox CX 90. The stent was deployed at 21 SAMARIA for 0:10 (min:sec) 0. 15:33:20 Stent catheter was removed intact over wire. 15:33:21 Wire removed. 15:33:53 CHOICE PT Extra Support 182cm wire ([id number]) opened to sterile field. 15:34:16 choice pt wire advanced. 15:34:38 Fentanyl 100 mcg I.V. was administered by Megan Russell RN; for chest pain; Verbal order read back and verified. 15:35:10 Inflation number: 1 The stent balloon was then re-inflated across the LMCA 90 to 17 SAMARIA for 0:10 (min:sec) 0. 15:35:48 Stent catheter was removed intact over wire. 15:35:49 Wire removed. 15:35:49 Guide catheter removed. 15:36:03 EXOSEAL 6Fr (EX600) opened to sterile field. 15:36:14 ACC Post-intervention DOMO Flow is 3. 15:36:22 Sheath removed intact; hemostasis achieved with Exoseal to the Right Femoral artery. 15:36:24 Procedure ended.(Physican Out) 15:36:35 Fluoroscopy time 05.50 minutes. 15:36:53 Fluoroscopy dose: 834 mGy 15:36:53 Flurop Dose total: 834 15:37:00 Dose Area Product 76691 mGy/cm. 15:37:03 Contrast amount:Isovue 300 136ml. 15:37:07 Maximum allowable dose exceeded? No. 15:37:08 Sharps counted by scrub and verified by R.N. 15:37:09 Insertion/operative site no bleeding no hematoma. 15:37:12 Post-op/insertion site Right Femoral artery dressed using a 4 x 4 and Tegaderm. 15:37:14 Post Procedure Pulses reassessed and unchanged 15:37:17 Post procedure rhythm: unchanged. 15:37:19 Estimated blood loss: 5 ml 15:37:21 Post procedure instruction explained to patient.Patient verbalizes understanding. 15:37:21 Patient needs reinforcement of post procedure teaching. 15:38:44 Procedure type changed to Cath procedure, Diagnostic procedure, LHC, LHC w/Coronaries, FFR/IVUS, FFR Initial, Sedation Charges, Moderate Sedation up to 15 minutes, PCI procedure, Coronary Stent, Coronary Stent Initial x2, PTCA, PTCA Initial 15:38:45 Procedure and supply charges have been captured, reviewed, submitted and are correct. 15:38:49 Procedure Complication : No complications 15:38:52 Vital chart was stopped 15:38:55 [facility] Findings: MVD- PCI performed (see procedure note) 15:39:04 Report given to [facility]. 15:39:08 Patient transfered to [facility] with Stretcher. 15:39:12 Procedure ended. 15:39:12 Full Disclosure recording stopped 15:39:27 ACC-PCI Only Patient was given prescriptions, or instructed by Miki Vazquez MD to start/continue the following medications upon discharge: Plavix 15:39:29 End room use (Document Last) 15:42:00 ACT drawn and resulted at 209 seconds. (normal therapeutic range 180-240 seconds). 15:42:01 End room use (Document Last) 15:42:22 End room use (Document Last) 15:42:56 Plavix 600 mg P.O. was administered by Megan Russell RN; for antiplatelet therapy; Verbal order read back and verified. Intervention Summary Intervention Notes Time ActionType Lesion and Equipment Used Action# Pressure Duration Attributes 15:27:28 Place stent Prox LAD SHAHEEN RX 3.5 x 1 21 00:10 08 stent ([id number]) 15:29:26 Discard SHAHEEN RX 3.5 x Stent 08 stent ([id number]) 15:30:40 Inflate Prox CX EUPHORA 3.0 x 1 19 00:10 balloon 15 Balloon ([id number]) 15:31:46 Place stent Prox CX SHAHEEN RX 3.5 x 2 21 00:10 08 stent ([id number]) 15:35:10 Reinflate LMCA SHAHEEN RX 3.5 x 1 17 00:10 stent 08 stent balloon ([id number]) Device Usage Item Name Manufacture Quantity Catalog Number Hospital Part Current Minimal Lot# / Charge Number Stock Stock Serial# Code ACIST Syringe Acist 1 11697 645182 917676 [id number] 20 (15635) Medical Systems Inc Bag Decanter Microtek 1 977126 20903 988512 5 () Medical Inc. Medline Cath Medline 1 [id number] 371427 68656 478843 5 Pack ([id number]) ACIST Hand Acist 1 20496 583242 810638 098913 5 Control Medical (07058) Systems Inc ACIST Manifold Acist 1 13700 633288 291959 773450 5 (22322) Medical Systems Inc DIAGNOSTIC Cardinal 1 OH0968 960045 84761 499936 30 Multipack 5Fr Health catheter set (VI1550) Tegaderm 4 x 4 3M 1 1626W 031777 582266 498629 5 (1626W) SHEATH 5FR Terumo 1 QXI287 957545 073081 801269 5 [place] (GSK291) EMERALD Guide Cardinal 1 502-455 853146 745721 008380 5 Wire (502-455) Health MULTIPACK Cardinal 1 442079 5 Pigtail 5 Fr Health catheter MULTIPACK JL Cardinal 1 176173 5 4.0 5Fr Health catheter MULTIPACK 3DRC Cardinal 1 138409 5 5Fr catheter Health GUIDE 6FR Cardinal 1 [id number] 127611 117429 362767 3 XBLAD 4.0 Health catheter ([id number]) Isabella Isabella 1 67219W 767490 329420931 279702 5 Verrata Plus pressure wire (30505E) INFLATOR Merit Merit 1 FS4002 849339 630223 255173 15 BasAdverCar Medical (AG6638) SHEATH 6FR Terumo 1 JTT623 370853 804162 880393 40 [place] (CDX271) CHOICE PT [place] 2 [id number] 500493 087317 408484 5 Extra Support Scientific 182cm wire ([id number]) SHAHEEN RX 3.5 x Medtronic 2 [id number] 749721 0128214 506741 5 [id number] 08 stent [id number] ([id number]) EUPHORA 3.0 x Medtronic 1 [id number] 815583 315151 757511 5 [id number] 15 Balloon ([id number]) EXOSEAL 6Fr Cardinal 1 EX600 495945 708343 951931 10 (EX600) Health Signature Audit [place] Stage Time Signature Unsigned Intra-Procedure 09/06/2019 Gi Byers 3:42:01 PM RT(R) Intra-Procedure 09/06/2019 Megan Russell RN 3:42:22 PM Intra-Procedure 09/06/2019 Miki Vazquez 3:44:[address] [facility] [address] [facility] [place] [address]
[~2019-09-05 15:53] MED LIST changes: +ELIQUIS5 MG PO
[2019-09-05 16:19] LABS: BASOPHILS 0.6 % (0-2); EOSINOPHILS 6.3 % (0-7); HEMATOCRIT 45.6 % (42.0-54.0); HEMOGLOBIN 15.6 g/dL (13.5-17.5); IMMATURE GRANULOCYTES 0.2 % (0-5); LYMPHOCYTES 32.9 % (15-50); MCH 32.2 pg (26.0-34.0); MCHC 34.2 g/dL (31.0-37.0); MONOCYTES 11.1 % (2-11); NEUTROPHILS 48.9 % (40-80); PLATELET COUNT 217 10x3/uL (130-400); RBC 4.85 10x6/uL (4.20-6.10); RDW 13.9 % (11.5-14.5); WBC 6.5 10x3/uL (4.8-10.8)
[2019-09-05 16:26] LABS: APTT 30.6 SECONDS (22.8-39.4); INR 0.92 (0.85-1.17); PROTIME 12.3 SECONDS (11.6-15.0)
[2019-09-05 16:31] LABS: CALC OSMOLALITY 283 mosm/kg (275-300); CALCIUM 8.7 mg/dL (8.5-10.1); CHLORIDE - SERUM 104 mmol/L (98-107); GLUCOSE 91 mg/dL (74-106); POTASSIUM - SERUM 4.2 mmol/L (3.5-5.1); SODIUM 141 mmol/L (136-145); UREA NITROGEN 20 mg/dL (7-18); eGFR NON AFRICAN AMERICAN 79 mL/min (90-120)
[2019-09-05 16:45] LABS: ALBUMIN 3.7 g/dL (3.4-5.0); ALKALINE PHOSPHATASE 94 U/L (46-116); ALT (SGPT) 40 U/L (10-68); BILIRUBIN - TOTAL 0.15 mg/dL (0.2-1.3); CKMB 2.2 U/L (0.0-3.6); CREATINE KINASE 156 UL (21-232); MAGNESIUM - SERUM 2.1 mg/dL (1.8-2.4)
[2019-09-05 16:50] LABS: TROPONIN-I < 0.017 ng/mL (0.000-0.060)
[2019-09-05 19:26] VITALS: BP 125/78
[2019-09-05 23:28] LABS: CREATINE KINASE 160 UL (21-232)
[2019-09-05 23:29] LABS: TROPONIN-I < 0.017 ng/mL (0.000-0.060)
[2019-09-05 23:46] VITALS: BP 154/85; Ht 177.8 cm; Wt 81.8 kg
[2019-09-06 04:00] VITALS: BP 133/90
[2019-09-06 05:43] LABS: BASOPHILS 0.2 % (0-2); EOSINOPHILS 0.2 % (0-7); HEMOGLOBIN 14.9 g/dL (13.5-17.5); LYMPHOCYTES 16.1 % (15-50); MCH 31.6 pg (26.0-34.0); MCHC 33.9 g/dL (31.0-37.0); MCV 93.2 fL (80.0-100.0); MEAN PLATELET VOLUME 9.2 fL (7.4-10.4); MONOCYTES 0.8 % (2-11); NEUTROPHILS 82.7 % (40-80); PLATELET COUNT 220 10x3/uL (130-400); RBC 4.72 10x6/uL (4.20-6.10); RDW 13.8 % (11.5-14.5); WBC 6.4 10x3/uL (4.8-10.8)
[2019-09-06 06:18] LABS: CALCIUM 8.7 mg/dL (8.5-10.1); CARBON DIOXIDE 29.6 mmol/L (21.0-32.0); CHLORIDE - SERUM 103 mmol/L (98-107); CREATINE KINASE 134 UL (21-232); CREATININE - SERUM 0.9 mg/dL (0.6-1.3); MAGNESIUM - SERUM 2.1 mg/dL (1.8-2.4); PHOSPHOROUS 2.5 mg/dL (2.5-4.9); SODIUM 138 mmol/L (136-145); UREA NITROGEN 24 mg/dL (7-18); eGFR NON AFRICAN AMERICAN 89 mL/min (90-120)
[2019-09-06 06:19] LABS: CALC OSMOLALITY 283 mosm/kg (275-300); GLUCOSE 177 mg/dL (74-106); TROPONIN-I < 0.017 ng/mL (0.000-0.060)
[2019-09-06 08:37] LABS: CHOL - HDL RATIO 4.3 ratio (2.3-4.9); LDL-HDL RATIO 3.1 ratio (1.5-3.5)
[2019-09-06 08:48] VITALS: BP 130/84
[2019-09-06 11:35] LABS: CREATINE KINASE 139 UL (21-232); TROPONIN-I < 0.017 ng/mL (0.000-0.060)
[2019-09-06 13:45] VITALS: BP 120/68
--- NOTE | 2019-09-06 14:13 | CN ---
PATIENT NAME:EMELY VALLE MEDICAL RECORD: [id number] : 50 LOCATION:D.Lu D.2116 ADMIT DATE: 09/05/19 ACCOUNT: [id number] CONSULTING PHYSICIAN: MARQUIS DELCID MD REFERRING PHYSICIAN: KEVEN HANSEN DO DATE OF CONSULTATION: 09/06/2019 HISTORY OF PRESENT ILLNESS: A 69-year-old gentleman a known history of coronary artery disease, status post intervention, history of obstructive pulmonary disease with ongoing cigarette use, has been for the past 2-3 days having increasing chest tightness, pressure with exertion accompanied by shortness of breath, reminiscent of angina. We are asked to see him concerning his cardiovascular status. PAST MEDICAL HISTORY: Includes: 1. History of hypertension. 2. Hyperlipidemia. 3. Obstructive pulmonary disease. 4. Coronary artery disease as described above. ALLERGIES: IODINE. SOCIAL HISTORY: Smokes about a pack a day. Easily takes care of all his ADLs. No illicit drug use. Nondrinker. No set exercise program. REVIEW OF SYSTEMS: The patient reports easy bruising but reports no swollen glands. The patient reports no fever, no night sweats, no significant weight gain, no significant weight loss. No significant exercise tolerance. The patient reports no dry eyes, no irritation, no vision change. Patient reports no difficulty hearing and no ear pain. Patient reports no frequent nose bleeds or nose and sinus problems. Patient reports on arm pain on exertion. No shortness of breath while lying down. No history of heart murmur. Patient reports no cough, no wheezing or coughing up blood. Patient reports no abdominal pain, no vomiting. Normal appetite. No diarrhea and not vomiting blood. No nausea and no constipation. Patient reports no incontinence. No difficulty urinating. No hematuria. No increased frequency. Patient reports no muscle aches. No weakness, no arthralgias, no back pain. No swelling of the extremities. Patient reports no abnormal mole, no jaundice, no rashes. Reports no loss of consciousness. No weakness and no numbness. No seizures, dizziness, or headaches. The patient reports no depression, no sleep disturbance, feeling safe in a relationship and no alcohol abuse. Patient reports on fatigue. Reports no runny nose or sinus pressure. No itching, no hives, and no frequent sneezing. PHYSICAL EXAMINATION: GENERAL: Pleasant gentleman, in no acute distress, appears stated age. VITAL SIGNS: Blood pressure 133/90, pulse 68 and regular. HEENT: Normocephalic, atraumatic. NECK: No bruits noted. HEART: Regular. II/ systolic ejection murmur. LUNGS: Few expiratory wheezes with prolonged respiratory phase. ABDOMEN: Soft, nontender. EXTREMITIES: Pulses 2+. No edema. DIAGNOSTIC DATA: EKG shows nonspecific ST-T changes inferolaterally. CONSULT REPORT [id number] EMELY VALLE IMPRESSION: Difficult to say if this is a pulmonary issue with demand angina versus progression of known jena disease. PLAN: For angiography, intervention based on above. TRANSINT:[id number] Voice Confirmation ID: [id number] DOCUMENT ID: [id number] MARQUIS DELCID MD at 1413 CC: [id number] DICTATION DATE: 09/06/19827 MANAGER PMO: 09/06/19 1034 ADM IN [facility] [address] [place] [address]
--- NOTE | 2019-09-06 14:48 | NUR ---
PRE-OPS GIVEN. TO ESCROW SECRETARY BY BED.
--- NOTE | 2019-09-06 16:03 | NUR ---
BACK FROM RESIDENTIAL MONITOR. VS WNL. RIGHT GROIN STABLE WITHOUT BLEEDING OR HEMATOMA NOTED. WILL MONITOR.
[2019-09-06 18:27] VITALS: BP 106/68
--- NOTE | 2019-09-06 19:30 | NUR ---
PATIENT IS ALERT AND ORIENTED. PATIENT REMAINS ON BEDREST. RESPIRATIONS ARE EVEN AND UNLABORED. NO S/S OF DISTRESS. NO C/O PAIN. CALL LIGHT WITHIN REACH. WILL CPOC.
[2019-09-06 20:00] VITALS: BP 110/60
[2019-09-07 00:30] VITALS: BP 107/55
--- NOTE | 2019-09-07 02:12 | NUR ---
PATIENT RESTING COMFORTABLY IN BED. RESPIRATIONS ARE EVEN AND UNLABORED. NO S/S OF DISTRESS. CALL LIGHT WITHIN REACH. WILL CPOC
[2019-09-07 04:30] VITALS: BP 119/67
[2019-09-07 05:13] LABS: BASOPHILS 0.1 % (0-2); EOSINOPHILS 0 % (0-7); HEMOGLOBIN 12.3 g/dL (13.5-17.5); IMMATURE GRANULOCYTES 0.3 % (0-5); LYMPHOCYTES 9.2 % (15-50); MCH 31.1 pg (26.0-34.0); MCHC 33.2 g/dL (31.0-37.0); MCV 93.4 fL (80.0-100.0); MEAN PLATELET VOLUME 9.2 fL (7.4-10.4); MONOCYTES 7.5 % (2-11); NEUTROPHILS 82.9 % (40-80); PLATELET COUNT 188 10x3/uL (130-400); RBC 3.96 10x6/uL (4.20-6.10); RDW 14.3 % (11.5-14.5)
[2019-09-07 05:23] LABS: WBC 16.6 10x3/uL (4.8-10.8)
[2019-09-07 05:32] LABS: CALC OSMOLALITY 284 mosm/kg (275-300); CALCIUM 8.1 mg/dL (8.5-10.1); CARBON DIOXIDE 28.6 mmol/L (21.0-32.0); CHLORIDE - SERUM 104 mmol/L (98-107); SODIUM 140 mmol/L (136-145); UREA NITROGEN 27 mg/dL (7-18); eGFR NON AFRICAN AMERICAN 79 mL/min (90-120)
[2019-09-07 05:39] LABS: GLUCOSE 109 mg/dL (74-106); PHOSPHOROUS 3.3 mg/dL (2.5-4.9)
[2019-09-07 12:01] VITALS: BP 137/79
--- NOTE | 2019-09-07 13:31 | NUR ---
UPON ADMIT, PATIENT HAS NOT HAD A FLU SHOT. WHEN QUESTIONED FOR DISCHARGE, HE REFUSED ONE.
--- NOTE | 2019-09-07 13:46 | NUR ---
IV AND TELEMETRY DCD. DC PLANS GIVEN. UNDERSTANDING VOICED. LEAVING HOSPITOL WITH FAMILY MEMBER.
--- NOTE | 2019-09-11 11:24 | OP ---
PATIENT NAME: EMELY VALLE MEDICAL RECORD: [id number] :50 LOCATION:D.M2 D.2116 ADMISSION DATE:09/05/19 SURGEON: THEO ESPINOSA MD DATE OF OPERATION: 09/06/2019 PROCEDURES: 1. PTCA stent LAD. 2. PTCA stent left circumflex. 3. PTCA left main. 4. IFR. 5. Left heart catheterization. 6. Selective coronary angiography. 7. Left ventriculogram. INDICATION: Unstable angina and coronary artery disease. PROCEDURE IN DETAIL: After informed consent was obtained and after detailed explanation of risks, benefits as well as alternative therapies, the patient elected to proceed with angiogram and angioplasty. The right femoral area was prepped and draped in normal sterile fashion. Right femoral artery was cannulated via modified Seldinger technique with placement of 6-Sloven[place] sheath. All catheters exchanged through this sheath. FINDINGS: Left ventriculogram was performed in standard 30-degree OSORIO view, reveals good cardiac wall motion throughout all segments. Overall ejection fraction estimated 60%. SELECTIVE CORONARY ANGIOGRAPHY: 1. Left main has a previously placed stent with no significant restenosis. Left anterior descending has 75% stenosis in the proximal aspect just after the stent and IFR was abnormal at 0.75. 2. The left circumflex has 80% to 90% stenosis at the ostium. This takes off in the previously placed stent of the left main. 3. The right coronary artery has moderate irregularities, but no flow-limiting stenosis. PTCA STENT OF THE LAD: The stent used was a 3.5 x 8 mm [place]. Result was 0% residual stenosis. PTCA STENT OF THE LEFT CIRCUMFLEX: The stent used was a 3.5 x 8 mm [place]. This caused a plaque shift into the left main. The left main was then greater than 80% stenosis, was addressed with a 3.5 balloon taken to 21 atmospheres. Result was 0% residual throughout. OVERALL IMPRESSION: Successful PTCA stent of the LAD and circumflex, both going from 75% to 90% initial stenosis to 0% residual. TRANSINT:[id number] Voice Confirmation ID: [id number] DOCUMENT ID: [id number] OPERATIVE REPORT [id number] TORIEMELY HICKEY THEO ZARATE MD at 112 CC: [id number] DICTATION DATE: 09/06/19 1544 VENETIAN BLIND WORKER: 09/06/192113 DIS IN 09/07/19 [facility] [address] [id number]
--- NOTE | 2019-09-11 11:24 | DS ---
PATIENT:EMELY VALLE :50 MEDICAL RECORD: [id number] DISCHARGE SUMMARY ADMISSION DATE: 09/05/19 DISCHARGE DATE: 09/07/19 DATE OF DISCHARGE: 1. Unstable angina. 2. Coronary artery disease. 3. Percutaneous transluminal coronary angioplasty stent left anterior descending and left circumflex this admission. 4. Hypertension. 5. Hyperlipidemia. HOSPITAL COURSE: Mr. Valle presents with unstable anginal symptomatology, found to have significant disease of the LAD and circumflex, underwent successful PTCA stent of both territories, was discharged home with the addition of Plavix to his medical regimen. Follow up with [facility] in 1 month. TRANSINT:[id number] Voice Confirmation ID: [id number] DOCUMENT ID: [id number] THEO ESPINOSA MD at 1124 CC: [id number] DICTATION DATE: 09/07/19921 JAVA APPLICATION ENGINEER: 09/07/192044 DIS IN 09/07/19 [id number] [place] [address]
== END 2019-09-07 13:50 | disposition home or self-care (01) ==
LOC: D.ER 15:53 → D.M2 19:01 → OBSVTIME 19:01 → D.M2 19:01
PROVIDERS: Emergency Medicine; Internal Medicine Interventional Cardiology; ADMIT Family Medicine; ATTEND Family Medicine
DX: I25.110 Atherosclerotic heart disease of native coronary artery with unstable angina pectoris (principal); I10 Essential (primary) hypertension; J44.9 Chronic obstructive pulmonary disease, unspecified; F17.203 Nicotine dependence unspecified, with withdrawal; F41.9 Anxiety disorder, unspecified; G89.29 Other chronic pain
CPT/HCPCS: 92920; 93458; 93571; C9600 ×2

== ENCOUNTER → 2020-05-09 10:53 | Outpatient (CLI) | payer MEDICARE ==
[2019-09-18 11:12] VITALS: BMI 23.7
[~2020-05-09 10:53] MED LIST changes: +PREDNISONE50 MG PO; +VALTREX1000 MG PO
== END | disposition home or self-care (01) ==
LOC: D.LAB 10:53
PROVIDERS: ATTEND Internal Medicine Pulmonary Disease
DX: Z11.59 Encounter for screening for other viral diseases (principal)

== ENCOUNTER → 2020-05-12 09:12 | Outpatient (CLI) | payer MEDICARE ==
[2019-09-18 11:12] VITALS: BMI 23.7
== END | disposition home or self-care (01) ==
LOC: D.RT 09:12
PROVIDERS: ATTEND Internal Medicine Pulmonary Disease
DX: J44.9 Chronic obstructive pulmonary disease, unspecified (principal)